=== PATIENT | male | born 1985 | race Two or more races ===

== ENCOUNTER 2022-11-30 16:26 | Outpatient (OUT) | payer MEDICAID, SELFPAY ==
--- NOTE | 2022-11-30 16:54 | XR_ITS ---
The [address] [address] Patient Name: ALEXANDRA PENA MRN: [id number] date: 1985 Sex: M Assigned Patient Location: [facility] Current Patient Location: Accession/Order Number: [id number] Exam Date: 11/30/2022 16:46 Report Date: 12/01/2022 06:42 At the request of: FRANCESCA MATIAS Procedure: XR hand RT min 3V PROCEDURE: XR hand RT min 3V HISTORY: Right hand Injury COMPARISON: None. FINDINGS: BONES:Amputation of second digits at level of distal end of the proximal phalanx. No cortical destruction, bone erosion, or periosteal reaction. No fracture or dislocation. SOFT TISSUES:No visible soft tissue swelling. EFFUSION:None visible. OTHER: Negative. XR/XR hand RT min 3V IMPRESSION: 1. Partial amputation of second digit. 2. No acute or suspicious findings. Electronically authenticated by: RUSSEL HERNÁNDEZ Date: 12/01/2022 06:42
== END 2022-11-30 16:27 | disposition home or self-care (01) ==
LOC: RAD 16:32
PROVIDERS: PCP Nurse Practitioner Primary Care; Visit Provider Nurse Practitioner Primary Care
DX: S69.91XA Unspecified injury of right wrist, hand and finger(s), initial encounter (principal); S68.620A Partial traumatic transphalangeal amputation of right index finger, initial encounter
CPT/HCPCS: 73130

== ENCOUNTER 2022-12-01 11:55 | Emergency (ER) | payer MEDICAID, SELFPAY ==
[2022-12-01 12:15] VITALS: BP 136/99; PULSE 73; RESP 20; TEMP 36.6; O2SAT 99; BMI 26.6
--- NOTE | 2022-12-01 12:25 | PC.NURSE ---
Pt has swelling and redness to right forearm and hand. 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 Pt is on oral antibiotics for this and states it seems to be getting worse. Pt had outpatient x rays yesterday done at [facility]. Pt is from [facility] recovery.
--- NOTE | 2022-12-01 13:44 | ED_ITS ---
HPI - Extremity Problem General Chief complaint: Extremity Problem, Nontraumatic Stated complaint: RT ARM INFECTION Time Seen by Provider: 12/01/22 12:40 Source: patient Mode of arrival: walk-in Limitations: no limitations History of Present Illness HPI Narrative: Sent to us from [facility] because of an abscess that is in the right upper extremity the patient already have a history of a chronic ulcer to his right hand and loss of his index finger after infection. Is coming to the ER with a progressively getting worse and abscess in his right forearm he was already started on doxycycline in the facility with no improvement The patient denying any fever chills or any other complaints he also complained only of pain at the site Related Data Home Medications Medication Instructions Recorded Confirmed doxycycline hyclate 100 mg capsule 100 mg PO Q12H 12/01/22 12/01/22 gabapentin 300 mg capsule 300 mg PO Q8H PRN pain 12/01/22 12/01/22 sertraline 50 mg tablet (Zoloft) 50 mg PO DAILY 12/01/22 12/01/22 trazodone 100 mg tablet 100 mg PO BEDTIME 12/01/22 12/01/22 Previous Rx's Medication Instructions Recorded amoxicillin 875 mg-potassium 1 tab PO BID #20 tabs 12/01/22 clavulanate 125 mg tablet Allergies Allergy/AdvReac Type Severity Reaction Status Date / Time No Known Drug Allergies Allergy Verified 12/01/22 12:19 Review of Systems ROS Status of ROS 10 or more systems reviewed and unremarkable except as noted in history and below Exam Narrative Exam Narrative: Nurses notes and vital signs reviewed and patient is not hypoxic. General: Well-appearing and in no apparent distress. Skin: Warm, dry, no pallor noted. No rash. Head: Normocephalic, atraumatic. Neck: Supple, non-tender. Eye: Pupils are equal, round and EOMI. No scleral icterus. Ears, Nose, Mouth, and Throat: TM are clear, no nasal mucosal hypertrophy. Oral mucosa is moist, no posterior oropharynx erythema, uvula is mid-line Cardiovascular: Regular Rate and Rhythm without murmur, gallop or rub. Respiratory: No accessory muscle use or respiratory distress. Lungs are clear to auscultation, no wheezing, rales or rhonchi Chest Wall: no tenderness Back: No midline thoracic or lumbar vertebral tenderness. No CVA tenderness Musculoskeletal: normal ROM, no calf or popliteal tenderness, no lower extremity edema/swelling, edema noted in the whole right forearm anteriorly in addition to an abscess that is almost 2 x 1 cm oval in shape on the medial aspect of the forearm with extending induration around it, there is also fluctuation of the abscess the patient also have a the right index finger amputated after infection with a healing ulcer on the dorsum of the right hand just below the metacarpal phalangeal second joint GI: Abdomen is soft, non-distended. Normal bowel sounds. No masses appreciated. No tenderness to palpation. No rebound, guarding, or rigidity noted. Neurological: A&O x4. No cranial nerve dysfunction observed. No truncal ataxia. Moves all extremities. Sensation intact. Psychiatric: Cooperative and interactive. Normal mood and affect. Constitutional Vital Signs, click to edit/add: Last Vital Signs Temp 97.8 F 12/01/22 12:15 Pulse 73 12/01/22 12:15 Resp 20 12/01/22 12:15 BP 136/99 H 12/01/22 12:15 Pulse Ox 99 12/01/22 12:15 O2 Del Method Room Air 12/01/22 12:15 Course Vital Signs Vital signs: Vital Signs Temperature 97.8 F 12/01/22 12:15 Pulse Rate 73 12/01/22 12:15 Respiratory Rate 20 12/01/22 12:15 Blood Pressure 136/99 H 12/01/22 12:15 Pulse Oximetry 99 12/01/22 12:15 Oxygen Delivery Method Room Air 12/01/22 12:15 Temperature 97.8 F 12/01/22 12:15 Pulse Rate 73 12/01/22 12:15 Respiratory Rate 20 12/01/22 12:15 Blood Pressure 136/99 H 12/01/22 12:15 Pulse Oximetry 99 12/01/22 12:15 Oxygen Delivery Method Room Air 12/01/22 12:15 MDM - Extremity (Nontraumatic) MDM Narrative Medical decision making narrative: The CBC confirmed the diagnosis of infection with the elevated white blood cells chemistry was within normal After cleaning the area thoroughly with betadine, he had an infiltration of the area with 1% lidocaine almost 6 cc and after that with a large bore needle I was able to aspirate almost 5 cc of pus, also small stab wound to the area with pressure applied, caution was made to the radial artery Dressing and pressure wrap applied The patient had 1 dose of Unasyn in the ER and he also had a CAT scan of the CT upper extremity showed possibly remaining fluid with cellulitis which I did explain to the patient that he would need IV antibiotic for at least 24 hours and evaluation with orthopedic specialty. The patient refused to be admitted he mentioned that he wants to leave because he cannot stay in the room he also mentioned that he went to smoke which I did offer him nicotine patch but he adamant to leave The patient had extensive explanation about the importance of the drainage and the fact that this could affect his life and his limb, the patient understand and he will come back in case of any new symptoms the [facility] facility had a signout regarding this as well 24 hours evaluation need to be done to make sure that the patient is improving Lab Data Labs: Lab Results 12/01/22 Range/Units 13:00 WBC 15.7 H (4.0-11.0) 10^3/uL RBC 4.97 (4.70-6.10) 10^6/uL Hgb 13.3 L (14.0-18.0) g/dL Hct 40.8 L (42.0-54.0) % MCV 82.1 (80.0-94.0) fL MCH 26.8 (25.9-34.0) pg MCHC 32.6 (29.9-35.2) g/dL RDW 14.6 (11.0-15.0) % Plt Count 342 (150-450) 10^3/uL MPV 11.1 (9.5-13.5) fL Neut % (Auto) 78.5 H (43.0-75.0) % Lymph % (Auto) 15.1 L (20.5-60.0) % [place] % (Auto) 5.0 (1.7-12.0) % Eos % (Auto) 0.1 L (0.9-7.0) % Baso % (Auto) 0.3 (0.2-2.0) % Neut # (Auto) 12.3 H (1.4-6.5) 10^3/uL Lymph # (Auto) 2.4 (1.2-3.8) 10^3/uL [place] # (Auto) 0.8 (0.3-0.8) 10^3/uL Eos # (Auto) 0.0 (0.0-0.7) 10^3/uL Baso # (Auto) 0.1 (0.0-0.1) 10^3/uL Abs Immat Gran (auto) 0.15 H (0.00-0.03) 10^3/uL Imm/Tot Granulo (auto) 1.0 H (0.0-0.5) % Sodium 142 (136-145) mmol/L Potassium 3.9 (3.5-5.1) mmol/L Chloride 109 H (98-107) mmol/L Carbon Dioxide 26.4 (21.0-32.0) mmol/L Anion Gap 10.5 BUN 9.0 (7.0-18.0) mg/dL Creatinine 0.80 (0.70-1.30) mg/dL Est GFR ( Amer) >60 (>=60) Est GFR (Non-Af Amer) >60 (>=60) BUN/Creatinine Ratio 11.2 Glucose 83 (74-106) mg/dL Calcium 8.8 (8.5-10.1) mg/dL Total Bilirubin 0.5 (0.2-1.0) mg/dL AST 13 L (15-37) U/L ALT 24 (16-63) U/L Alkaline Phosphatase 98 (46-116) U/L Total Protein 7.6 (6.4-8.2) g/dL Albumin 3.6 (3.4-5.0) g/dL Globulin 4.0 g/dL Albumin/Globulin Ratio 0.9 Discharge Plan Discharge Chief Complaint: Extremity Problem, Nontraumatic Clinical Impression: Abscess of forearm Patient Disposition: Left Against Medical Advice Time of Disposition Decision: 15:51 Condition: Good Prescriptions / Home Meds: New amoxicillin-pot clavulanate 875-125 mg tablet 1 tab PO BID Qty: 20 0RF No Action doxycycline hyclate 100 mg capsule 100 mg PO Q12H gabapentin 300 mg capsule 300 mg PO Q8H PRN (Reason: pain) trazodone 100 mg tablet 100 mg PO BEDTIME sertraline [Zoloft] 50 mg tablet 50 mg PO DAILY Instructions: Abscess Follow-up (ED) Stand Alone Forms: Portal Instructions Referrals: FRANCESCA MATIAS APRN [Primary Care Provider] - 1 week
[2022-12-01 13:48] LABS: Alanine Aminotransferase 24 U/L (16-63); Albumin Globulin Ratio 0.9; Albumin Level 3.6 g/dL (3.4-5.0); Alkaline Phosphatase 98 U/L (46-116); Anion Gap 10.5; Aspartate Amino Transferase 13 U/L (15-37); BUN Creatinine Ratio 11.2; Bilirubin Total 0.5 mg/dL (0.2-1.0); Calcium 8.8 mg/dL (8.5-10.1); Carbon Dioxide 26.4 mmol/L (21.0-32.0); Chloride 109 mmol/L (98-107); Estimated GFR (African America >60 (>=60); Estimated GFR (Non-African Ame >60 (>=60); Glucose 83 mg/dL (74-106); Potassium 3.9 mmol/L (3.5-5.1); Sodium 142 mmol/L (136-145); Total Protein 7.6 g/dL (6.4-8.2)
--- NOTE | 2022-12-01 14:05 | CT_ITS ---
[address] [address] Patient Name: ALEXANDRA PENA MRN: [id number] date: 1985 Sex: M Assigned Patient Location: ER Current Patient Location: ER Accession/Order Number: [id number] Exam Date: 12/01/2022 14:32 Report Date: 12/01/2022 15:36 At the request of: KELVIN LOPEZ Procedure: CT forearm RT w con EXAM: CT forearm RT w con HISTORY: abscess post drainage COMPARISON: Hand radiographs 11/30/2022 TECHNIQUE: Axial sections were obtained followed by sagittal and coronal reconstructions. Images were displayed at soft tissue and bone windows. Intravenous contrast was administered. FINDINGS: There is diffuse subcutaneous fat stranding circumferentially about the forearm. There is a fluid and air collection within subcutaneous fat and at the juncture with the deep peripheral fascia in the volar lateral aspect of the forearm. This collection measures approximately 1.8 cm AP by 1.8 cm transverse by 4.4 cm longitudinally. There is overlying skin thickening in this area. A thin rim of fluid is seen at the margin of deep peripheral fascia along the medial volar, medial, and posterior medial aspect of the forearm, showing density numbers in the range of 14 Hounsfield units and measuring approximately 7 mm in thickness. There is no visible involvement of muscle groups or deep fascial planes between muscular bundles. The radius and ulna show intact cortical margins and normal architecture. Articulations at elbow and wrist are intact.i CT/CT forearm RT w con IMPRESSION: 1. Diffuse subcutaneous fat stranding of the forearm compatible with cellulitis. 2. Collection of fluid and air within subcutaneous fat and extending to the deep peripheral fascia in the volar lateral aspect of the forearm. This likely is related to the site of recent abscess drainage. Please correlate clinically. 3. Thin rim of fluid along the medial volar, medial, and posterior medial aspect of the forearm at the juncture of subcutaneous fat and deep peripheral fascia likely representing reactive effusion. Electronically authenticated by: Wai ARMSTRONG Date: 12/01/2022 15:36
[2022-12-01 14:26] LABS: Basophils Absolute Auto 0.1 10^3/uL (0.0-0.1); Basophils Percent Auto 0.3 % (0.2-2.0); Eosinophils Percent Auto 0.1 % (0.9-7.0); Hematocrit 40.8 % (42.0-54.0); Hemoglobin 13.3 g/dL (14.0-18.0); Immature Granulocytes Abs Auto 0.15 10^3/uL (0.00-0.03); Lymphocytes Absolute Auto 2.4 10^3/uL (1.2-3.8); Lymphocytes Percent Auto 15.1 % (20.5-60.0); Mean Corpuscular HGB Conc 32.6 g/dL (29.9-35.2); Mean Corpuscular Hemoglobin 26.8 pg (25.9-34.0); Mean Corpuscular Volume 82.1 fL (80.0-94.0); Mean Platelet Volume 11.1 fL (9.5-13.5); Monocytes Absolute Auto 0.8 10^3/uL (0.3-0.8); Neutrophils Absolute Auto 12.3 10^3/uL (1.4-6.5); Neutrophils Percent Auto 78.5 % (43.0-75.0); Platelet Count 342 10^3/uL (150-450); Red Blood Count 4.97 10^6/uL (4.70-6.10); Red Cell Distribution Width 14.6 % (11.0-15.0); White Blood Count 15.7 10^3/uL (4.0-11.0)
[2022-12-01] MEDS: AMPICILLIN SODIUM/SULBACTAM NA 3 GM in 0.9 % SODIUM CHLORIDE 100 ML IV (14:47)
[2022-12-01] MEDS: LIDOCAINE HCL 1% 200 MG/20 ML MDV 15 ML INJ (15:22)
[2022-12-01] MEDS: CLINDAMYCIN PHOSPHATE/D5W 300 MG/50 ML PIGGYBACK 100 MG IV (15:26)
--- NOTE | 2022-12-03 10:39 | PC.NURSE ---
12/03/2022: CALL ATTEMPTED TO NOTIFY PT ON WOUND CULTURE RESULTS AND MEDICATION CHANGE. NO ANSWER. MESSAGE LEFT ON [employer]IC[employer] TO RETURN CALL
== END 2022-12-01 16:22 | disposition left against medical advice (07) ==
PROVIDERS: Emergency Provider Emergency Medicine; PCP Nurse Practitioner Primary Care
DX: L02.413 Cutaneous abscess of right upper limb (principal); Z79.899 Other long term (current) drug therapy; Z53.29 Procedure and treatment not carried out because of patient's decision for other reasons
CPT/HCPCS: 10160; 36415; 73201; 80053; 85025; 87070; 87150; 87186; 96374; 96375; 99285; Q9967